=== PATIENT | female | born 1930 | race Caucasian/White ===

== ENCOUNTER 2016-07-03 15:12 | Inpatient (IN) ==
[2016-07-03 17:47] LABS: BASO% 0.2 % (0.0-0.8); EOS# 0.11 X1000 (0.0-0.7); HEMATOCRIT 24.7 % (37.0-47.0); IMM GRAN# 0.02 X1000 (0.0-0.04); IMM GRAN% 0.2 % (0.0-0.5); LYMPH% 12.2 % (20.5-51.1); MANUAL DIFF NEEDED? YES; MCH 23.7 PG (27-31); MCHC 32.4 g/dL (33-37); MCV 73.1 FL (81-99); MONO# 0.54 X1000 (0.11-0.59); MONO% 4.7 % (1.7-9.3); MPV 9.3 FL (7.4-10.4); NEUT% 81.7 % (42.2-75.2); PLT 394 X1000 (130-400); RBC 3.38 XMIL (4.2-5.4)
[2016-07-03 17:51] LABS: PROTIME 10.5 Seconds (9.2-11.7); PTT 28.7 Seconds (22.0-36.0)
[2016-07-03 18:01] LABS: LYMPHS 16 % (21-51); MONO 2 % (1-9)
[2016-07-03 18:02] LABS: HYPOCHROM OCCASIONAL
[2016-07-03 18:09] LABS: ALBUMIN 3.8 g/dL (3.5-5.0); CALCIUM 9.4 mg/dL (8.8-10.2); POTASSIUM 5.4 mmol/L (3.5-5.1); TOTAL BILIRUBIN 0.18 mg/dL (0.20-1.00); TOTAL PROTEIN 7.2 g/dL (6.3-8.3)
[2016-07-03 18:27] LABS: FERRITIN 46 ng/mL (13-150); FREE T4 1.41 ng/dL (0.93-1.70)
[2016-07-03] MEDS ORDERED: NS 500 ML ONE (18:39)
[2016-07-03] MEDS: ULTRAM PO SCH (18:43)
[2016-07-03] MEDS: CARAFATE PO SCH ×2 (18:45→21:53)
[2016-07-03 19:22] LABS: URINE MICRO REVIEW NEEDED? NO; URINE SOURCE CLEAN CATCH
[2016-07-03 19:25] LABS: BILIRUBIN URINE NEGATIVE (NEGATIVE); BLOOD URINE NEGATIVE (NEGATIVE); COLOR YELLOW; GLUCOSE URINE NEGATIVE (NEGATIVE); LEUKOCYTES URINE LARGE (NEGATIVE); NITRITE URINE NEGATIVE (NEGATIVE); PROTEIN URINE TRACE mg/dL (NEGATIVE); SP GRAVITY URINE 1.006; TURBIDITY URINE CLEAR (CLEAR); UROBILINOGEN URINE NORMAL (NORMAL)
[2016-07-03 19:26] LABS: UR EPITHELIAL CELLS <10 /HPF (<10); URINE BACTERIA NEGATIVE /HPF; URINE CULTURE NEEDED? YES; URINE RBC <10 /HPF (<10); URINE WBC TNTC /HPF (<10)
[2016-07-03] MEDS: METROGEL 0.75% TOP SCH (21:51)
[2016-07-03] MEDS: SODIUM CHLORIDE 0.9% INJ SCH (21:52)
[2016-07-03] MEDS: CATAPRES PO SCH (21:53)
[2016-07-03] MEDS: RESTASIS 0.05% OPH DROPS BOTH EYES SCH (21:53)
[2016-07-03] MEDS: PROTONIX IV SCH (21:53)
[2016-07-03] MEDS: COREG PO SCH (21:53)
[2016-07-03] MEDS: PRAVACHOL PO SCH (21:53)
[2016-07-03] MEDS: GLUCOSAMINE PO SCH (21:53)
[2016-07-03] MEDS: XALATAN 0.005% OPH SOLN BOTH EYES SCH (21:54)
[2016-07-03] MEDS: NS 1,000 ML IV SCH (21:55)
[2016-07-03] MEDS: ZOSYN 3.375 GM/NS 3.375 GM/50 ML IVPB IV SCH (22:26)
--- NOTE | 2016-07-03 22:45 | HISTORY AND PHYSICAL ---
CHIEF COMPLAINT: Abdominal pain, profound weakness. HISTORY OF PRESENT ILLNESS: This is an 85-year-old white female with past medical history significant for paroxysmal atrial fibrillation, first-degree AV block, diverticulosis, chronic lower extremity edema, hypertension, glaucoma, hyperlipidemia, hypothyroidism, impaired fasting glucose, insomnia, osteoarthritis, iron-deficiency anemia, low back pain, rosacea, and vitiligo who presents for evaluation of above-mentioned symptoms. Current history of present illness began over the course of the last 2-3 months. Patient states she developed acute onset of lower abdominal discomfort. The symptoms are most pronounced in the morning. Approximately once per month, she has experienced self-limiting low-grade fevers lasting approximately 1 day. She has experienced increasing belching and a dry mouth. She also notes frequent nausea. She has found that citrus juice exacerbates her symptoms, but eating occasionally improves her condition. She has experienced a burning sensation of her tongue and mouth. She was seen by a network systems integrator recently, but was unhappy with recommendations. Patient denies hematochezia or melena. She has lost a considerable amount of weight over the course of the last 3-4 months. On 06/26/2016, patient presented to my clinic for further evaluation. At that time, laboratory data was drawn. The patient was found to have hyponatremia, acute renal failure, anemia, and leukocytosis. Urinalysis was found to be abnormal and the patient was treated with antibiotic therapy. Since the last visit, the patient notes significant constipation with resolution yesterday. She continues to have profound weakness and decreased p.o. intake. Because of her persistent symptoms, repeat laboratory data was drawn. The patient was found to have progressive anemia and progressive acute renal failure with hyperkalemia. Urinalysis was also noted to be abnormal. Because of these conditions, patient will be admitted to the hospital for full evaluation and management. PAST MEDICAL HISTORY: 1. History of an abnormal mammogram. 2. Status post left ankle fracture in 1982 status post closed reduction with full recovery. 3. Paroxysmal atrial fibrillation. 4. First-degree AV block. 5. Diverticulosis. 6. Chronic lower extremity edema. 7. Hypertension. 8. Glaucoma. 9. 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 10. Hyperlipidemia. 11. Hypothyroidism. 12. Impaired fasting glucose. 13. Insomnia. 14. 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 15. Iron deficiency anemia. 16. Low back pain. 17. Menopause. 18. Modest carotid artery disease. 19. Generalized osteoarthritis. 20. Overweight. 21. Rosacea. 22. History of urticaria. 23. Vitiligo. CURRENT MEDICATIONS: 1. Aspirin 81 mg daily. 2. Sumaya 180 mg daily. 3. B-complex vitamin daily. 4. Carafate 1 g tablet 4 times daily. 5. Carvedilol 6.25 mg twice daily. 6. Clonidine 0.1 mg twice daily. 7. Cozaar 100 mg daily. 8. Glucosamine/chondroitin daily. 9. Metronidazole cream twice daily. 10. Meloxicam 15 mg daily. 11. Omeprazole 40 mg daily. 12. Pravastatin 40 mg at bedtime. 13. Restasis eye drops 1 drop twice daily. 14. Synthroid 88 mcg daily. 15. Trazodone 50 mg at bedtime. 16. Triamterene/hydrochlorothiazide 37.5/25 daily. 17. Ultram 50 mg, 2 tablets 3 times daily. 18. Voltaren Gel as needed. 19. Xalatan 0.005 liquid, 1 drop each eye at bedtime. 20. Zofran as needed. ALLERGIES: Patient states she is allergic to ibuprofen, Norvasc, and Zyrtec. SOCIAL HISTORY: Patient denies tobacco, alcohol or illicit drug use. She is a retired missionary. She enjoys reading and cross-stitching. She exercises intermittently. FAMILY HISTORY: Patient's father passed at age 58 secondary to complications of an acute myocardial infarction. Patient's mother passed at age 89 secondary to complications of acute myocardial infarction. REVIEW OF SYSTEMS: A 12 point review of systems was performed. Pertinent positives and negatives noted in history present illness. PHYSICAL EXAMINATION: VITAL SIGNS: Temperature 98.3 degrees, heart rate 63, respirations 20, blood pressure is 129/32. GENERAL: Elderly in no acute distress. HEENT: Normocephalic, atraumatic. Pupils equal, round, reactive to light. Extraocular muscles intact. Sclerae anicteric. Pale conjunctivae. Oral and nasopharynx clear without exudate. NECK: Supple. No lymphadenopathy. No thyromegaly. No bruits auscultated. CARDIOVASCULAR: Regular rate and rhythm. No significant murmurs, rubs, or gallops. PULMONARY: Clear to auscultation bilaterally. ABDOMEN: Diffusely tender without guarding or rebound. Positive bowel sounds. EXTREMITIES: Moves all extremities well. No significant clubbing, cyanosis, or edema. DERMATOLOGIC: Evaluation reveals no evidence of rash. LABORATORY DATA: White blood cell count 11.51, hemoglobin 8.0, hematocrit 24.7, platelet count 394,000, PT 10.5, INR is 1.00, PTT is 28.7, sodium 125, potassium 5.4, chloride 92, bicarb 15, BUN 70, creatinine 2.2, glucose 111, calcium 9.4, iron 46, TIBC 331, percent saturation 14, ferritin 46, total bilirubin 0.18, total protein 7.2, albumin 3.8, alkaline phosphatase 78, AST 12, ALT 12, amylase 46, lipase 29, vitamin B12 greater than 200, TSH 0.51, free T4 of 1.41. Urinalysis is significant for too many to count white blood cells. ASSESSMENT AND PLAN: An 85-year-old white female with past medical history as noted presents for evaluation of persistent abdominal discomfort and decreased p.o. intake. Laboratory data is significant for a significant anemia, acute renal failure, and hyponatremia. Patient will be admitted to the hospital for full evaluation and management of each of these conditions. 1. Admit to General Medicine. 2. Anemia - The patient has a low MCV suggestive of underlying iron deficiency. I am most concerned in regard to GI loss. We will Hemoccult all stools. I have discussed case with Dr. Lozano and he will consult and consider endoscopic evaluation. We will follow clinical course closely. 3. Abdominal discomfort - The patient recently had a CT scan which suggested constipation. We will continue MiraLAX therapy. Once again, patient will likely require endoscopic evaluation to rule out colonic pathology. 4. Hyponatremia - This likely is secondary to acute renal failure and decreased p.o. intake. We will hold all diuretics. We will start normal saline. We will follow this. 5. Acute renal failure - Recently, patient had a creatinine of 0.7. Creatinine today is 2.4. Once again, I suspect this is secondary to decreased p.o. intake. We will aggressively, but cautiously, hydrate. We will hold all diuretics. We will also hold potentially nephrotoxic agents. 6. Hyperkalemia - This is secondary to acute renal failure. We will hydrate as described above. 7. Profound weakness with weight loss - This is very concerning, especially in the setting of acute renal failure and profound anemia. This simply may be secondary to an underlying ulcerative disease with blood loss and acute renal failure secondary to decreased p.o. intake. I am, however, concerned the patient is at risk for an underlying GI malignancy. We will aggressively evaluate as described above. 8. Abnormal urinalysis - We will send the patient's urine for culture. We will start patient on Zosyn therapy. We will follow this. 9. Hyperlipidemia - We will continue patient on pravastatin therapy. 10. Hypothyroidism - The patient's TSH is acceptable. We will continue her current regimen. 11. Impaired fasting glucose - Will remain aware. 12. Leukocytosis - This certainly could be secondary to urinary tract infection. We will follow this. 13. Fluid, electrolytes, nutrition - We will monitor electrolytes, normal saline at 500 mL bolus followed by 50 mL an hour. Clear liquid diet. 14. Prophylaxis. Patient will be placed on SCDs. Anticoagulants are contraindicated in the setting of anemia. cc: Golden Shabazz MD
[2016-07-04] MEDS: ZOSYN 3.375 GM/NS 3.375 GM/50 ML IVPB IV SCH ×4 (04:04→20:46)
[2016-07-04 05:52] LABS: BASO% 0.2 % (0.0-0.8); EOS# 0.12 X1000 (0.0-0.7); EOS% 1.2 % (0.0-10.0); HEMATOCRIT 24.9 % (37.0-47.0); IMM GRAN# 0.02 X1000 (0.0-0.04); IMM GRAN% 0.2 % (0.0-0.5); LYMPH# 0.84 X1000 (1.2-3.4); LYMPH% 8.2 % (20.5-51.1); MANUAL DIFF NEEDED? NO; MCH 23.5 PG (27-31); MCHC 32.1 g/dL (33-37); MONO# 0.66 X1000 (0.11-0.59); MONO% 6.5 % (1.7-9.3); MPV 9.3 FL (7.4-10.4); NEUT% 83.7 % (42.2-75.2); PLT 355 X1000 (130-400); RBC 3.41 XMIL (4.2-5.4)
[2016-07-04 06:07] LABS: ALBUMIN 3.5 g/dL (3.5-5.0); CALCIUM 9.1 mg/dL (8.8-10.2); POTASSIUM 4.8 mmol/L (3.5-5.1); TOTAL BILIRUBIN 0.2 mg/dL (0.20-1.00); TOTAL PROTEIN 7.6 g/dL (6.3-8.3)
[2016-07-04] MEDS: ZOFRAN IV PRN (08:56)
[2016-07-04] MEDS ORDERED: MIRALAX PO SCH (09:00)
[2016-07-04] MEDS: PROTONIX IV SCH ×2 (09:03→20:46)
[2016-07-04] MEDS: SODIUM CHLORIDE 0.9% INJ SCH (09:03)
[2016-07-04] MEDS: CARAFATE PO SCH ×4 (09:08→20:47)
[2016-07-04] MEDS: CATAPRES PO SCH ×2 (09:09→20:48)
[2016-07-04] MEDS: COREG PO SCH ×2 (09:09→20:48)
[2016-07-04] MEDS: ALLEGRA PO SCH (09:09)
[2016-07-04] MEDS: ULTRAM PO SCH ×4 (09:09→16:36)
[2016-07-04] MEDS: RESTASIS 0.05% OPH DROPS BOTH EYES SCH ×2 (09:10→20:46)
[2016-07-04] MEDS: METROGEL 0.75% TOP SCH ×2 (09:17→20:46)
[2016-07-04] MEDS: NS 1,000 ML IV SCH ×2 (12:23→20:47)
--- NOTE | 2016-07-04 13:30 | PROGRESS NOTE ---
DATE: 07/04/2016 SUBJECTIVE: The patient was admitted yesterday with symptomatic anemia, acute renal failure, hyponatremia, hyperkalemia, and profound weakness. She has experienced intermittent abdominal discomfort over the course of the last several months. The patient was placed on aggressive, but cautious hydration. Clear liquid diet was initiated. I discussed case with Dr. Lozano and he plans to consult. In addition, patient was noted to have an abnormal urinalysis. Zosyn therapy was initiated. This morning, patient states she continues to feel poorly. She notes significant weakness. She denies fevers, chills, shortness of breath, or chest discomfort. OBJECTIVE: Vital Signs: T-max 98.3 degrees, heart rate 60-63, respirations 14-18, blood to 104- 143/31-53. General: Elderly, no acute distress. Cardiovascular: Regular rate and rhythm. No significant murmurs, rubs, or gallops. Pulmonary: Clear to auscultation bilaterally. Abdomen: Soft and diffusely tender, although improved from yesterday. No guarding or rebound. Positive bowel sounds. Extremities: Moves all extremities well. No significant clubbing, cyanosis, or edema. Dermatologic: Evaluation reveals no evidence of rash. LABORATORY DATA: White blood cell count 10.20 hemoglobin 8.0 hematocrit 24.9, platelet count is 355,000. Sodium 132, potassium 4.8, chloride 99, bicarb 16, BUN 64, creatinine 2.0, glucose 95, calcium 9.1, total bilirubin 0.20, total protein 7.6, albumin 3.5, alkaline phosphatase 70, AST 10, ALT 10. ASSESSMENT AND PLAN: 1. Symptomatic anemia-patient has a significantly low MCV suggestive of an iron deficiency. Iron level returned low, but ferritin was acceptable. This could represent acute phase. Hemoccult evaluation thus far is pending. In the setting of abdominal discomfort and anemia, I do feel a full GI evaluation is warranted. Dr. Lozano has been consulted. We will plan an EGD and colonoscopy once able. 2. Abdominal discomfort-as described in history and physical examination, CT scan suggested constipation. I am concerned in regards to an intraluminal abnormality. For now, we will continue MiraLAX. We will defer management to Dr. Lozano. 3. Hyponatremia-this likely was secondary to a combination of acute renal failure and decreased p.o. intake. All diuretics were held. Sodium level has improved, although not normalized. We will continue to follow. 4. Acute renal failure-patient's creatinine has improved to 2.0. BUN is trending downward. We will continue aggressive but cautious hydration. 5. Hyperkalemia-patient has achieved resolution with hydration. 6. Profound weakness and weight loss-this has occurred over the course of the last several months. Certainly, patient has several potential etiologies including acute renal failure and profound anemia. I am concerned in regards to the possibility of underlying GI pathology. We will evaluate as described above. We will encourage patient to eat all meals in chair. We will consider physical therapy in the future. 7. Abnormal urinalysis-patient has too many to count white blood cells, but no bacteria. We will follow patient's culture. For now, we will continue Zosyn therapy. 8. Hyperlipidemia-we will continue pravastatin therapy. 9. Hypothyroidism-patient's TSH was acceptable upon admission. We will remain aware. 10. Impaired fasting glucose-we will remain aware. 11. Leukocytosis-patient's white count has normalized. We will continue Zosyn. We will follow cultures. 12. Disposition-at this point, patient continues to require [facility] care in the hospital setting. We will plan discharge home once appropriate. cc: Golden Shabazz MD
[2016-07-04] MEDS: XALATAN 0.005% OPH SOLN BOTH EYES SCH (20:46)
[2016-07-04] MEDS: GLUCOSAMINE PO SCH (20:47)
[2016-07-04] MEDS: ICAR-C PO SCH (20:47)
[2016-07-04] MEDS: PRAVACHOL PO SCH (20:47)
[2016-07-05] MEDS: ZOSYN 3.375 GM/NS 3.375 GM/50 ML IVPB IV SCH ×4 (03:08→21:59)
[2016-07-05] MEDS: ZOFRAN IV PRN (03:12)
--- NOTE | 2016-07-05 04:48 | CONSULTATION ---
DATE OF CONSULTATION: 07/04/2016 ATTENDING PHYSICIAN: Dr. Golden Shabazz. PRIMARY CARE DOCTOR: Dr. Golden Shabazz. REASON FOR CONSULTATION: Anemia, question of GI bleed, and previous history of gastric ulcer, constipation. HISTORY OF PRESENT ILLNESS: Ms. Montero is an 85-year-old female who was admitted on 07/03/2016 as a direct admit from Dr. Golden Shabazz' office for profound weakness and abdominal pain. According to the records, the patient was noted to have dropping hematocrit and worsening constipation. She had similar symptoms a year and a half ago, about March 2015. At that time, she came in anemic and had an EGD done by Dr. Gan that which showed evidence of an ulcer in the stomach. She had biopsies done of the ulcer which came back benign. The patient was supposed to have a repeat EGD done in 3 months after discharge but the patient does not recall having another EGD done after that time period. According to the patient, she has been on baby aspirin for coronary heart disease and paroxysmal atrial fibrillation. She denies any other NSAIDs at home. She denies any overt GI bleeding symptoms like vomiting blood or passing blood in the stools or melena. In fact, she is getting constipated and she is having a hard time passing stools. She has been taking MiraLAX at home with partial relief. She does not recall her last colonoscopy. During this admission, she was also noted to be hypernatremic, in renal failure with elevation of BUN and creatinine, anemia, leukocytosis, and a UTI. She is currently being managed by Dr. Shabazz for those. PAST MEDICAL HISTORY: 1. Abnormal mammogram. 2. First-degree AV block. 3. Diverticulosis. 4. Chronic lower extremity edema. 5. Proximal atrial fibrillation. 6. Hypertension. 7. Glaucoma. 8. Presumed hepatitis A with full recovery history. 9. Hyperlipidemia. 10. Hypothyroidism. 11. Impaired fasting glucose. 12. Insomnia. 13. Internal derangement of bilateral knees, status post bilateral total knee arthroplasty. 14. Iron-deficiency anemia. 15. Low back pain. 16. Menopause. 17. Carotid artery disease. 18. Generalized osteoarthritis. 19. Rosacea. 20. Urticaria. 21. Vitiligo. PAST SURGICAL HISTORY: 1. EGD in March [address] Gan showing a gastric ulcer. 2. Left ankle fracture in 1982, status post closed reduction with full recovery. 3. Bilateral total knee arthroplasty. MEDICATIONS AT HOME: Include: 1. Aspirin 81 mg every day. 2. Sumaya 180 mg daily. 3. B complex vitamin daily. 4. Carafate 1 g 4 times daily. 5. Carvedilol 6.25 mg b.i.d. 6. Clonidine 0.1 mg b.i.d. 7. Cozaar 100 mg daily. 8. Glucosamine/chondroitin daily. 9. Metronidazole cream twice daily. 10. Meloxicam 15 mg every day. 11. Omeprazole 40 mg every day. 12. Pravastatin 40 mg bedtime. 13. Restasis 1 drop twice daily. 14. Synthroid 88 mcg daily. 15. Trazodone 50 mg at bedtime. 16. Triamterene/hydrochlorothiazide 37.5/25 once daily. 17. Ultram 50 mg 2 tablets 3 times daily. 18. Voltaren gel as needed. 19. Xalatan 0.005 liquid to each eye at bedtime. 20. Zofran as needed. ALLERGIES: Ibuprofen, Norvasc, and Zyrtec. SOCIAL HISTORY: She denies any alcohol, tobacco, or drug use. 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 FAMILY HISTORY: No history of stomach or colon cancer in the family. REVIEW OF SYSTEMS: Denies any current fevers or chills. She does complain of feeling weak and tired. She also complains of bloating and constipation but denies noticing any blood in the stools. She denies any vomiting blood. She denies any chest pain or shortness of breath. She does have chronic pain in the back and the legs and ankle and knees secondary to osteoarthritis. Denies any neurologic complaints. MEDICATIONS IN THE HOSPITAL: Include: 1. Coreg. 2. Clonidine. 3. Cyclosporine in both eyes. 4. Fexofenadine, glucosamine. 5. Iron C b.i.d. 6. Latanoprost in both eyes. 7. Metronidazole topical b.i.d. 8. IV fluids at 50 mL per hour. 9. Zofran 4 mg IV every 4 hours as needed. 10. Protonix 40 mg IV q.12 hours. 11. MiraLAX 17 g daily. 12. Pravastatin 40 mg at bedtime. 13. Carafate 1 g 4 times daily. 14. Tramadol 100 mg p.o. t.i.d. 15. Zosyn 3.375 IV q.6 hours. 16. She is currently on a clear liquid diet. PHYSICAL EXAMINATION: Vital Signs: Temperature 98.4, pulse rate of 108, respiratory rate 18, blood pressure 103/60, saturating 94% on room air. Body weight of 140 pounds, BMI 24 kg. General Appearance: Moderately built, moderately nourished, lying in bed, in no acute distress. HEENT: Pale conjunctivae. No icterus. Pupils equal, react to light. Neck: Supple. Chest: Decreased in the bases. Cardiovascular: Regular rhythm. Abdomen: Soft, mildly protuberant. Tympanic on percussion. No rebound or guarding. Bowel sounds are present but hypoactive. Extremities: No cyanosis, clubbing. Neurologic: She is alert, awake, oriented x3. LABS: Hemoglobin and hematocrit are 8 and 24.9, white count of 10.2, platelet count of 355,000, MCV of 73. INR 1, PT of 10.5, PTT of 28.7. Sodium 132, potassium 4.2, chloride 99, bicarb 16, anion gap of 17, BUN of 64, creatinine of 2, glucose of 95, calcium 9.1. Total bilirubin is 0.2, AST 10, ALT 10, alkaline phosphatase 70, total protein 7.6, albumin of 3.5. B12 of more than 2000. TSH 0.51. Amylase of 46, lipase of 29. Percent saturation iron is 14, iron of 46, ferritin 46. Urinalysis showing trace protein and positive leukocytes. The urine culture showing so far preliminary no pathogenic bacteria or growth. IMPRESSION/PLAN: 1. Iron deficiency microcytic anemia, worsening now. 2. History of peptic ulcer disease based on esophagogastroduodenoscopy done in March of [address] Gan. 3. History of atrial fibrillation and carotid artery disease, on baby aspirin every day. 4. Osteoarthritis, on Mobic 15 mg every day. 5. Reflux disease, on Prilosec, omeprazole, proton pump inhibitors, and Carafate. 6. Constipation and history of diverticulosis. 7. Renal insufficiency. 8. Electrolyte imbalance. 9. Urinary tract infection. RECOMMENDATIONS: 1. At this point in time, the patient does continue on IV PPIs twice daily and Carafate 1 g 6 hours. 2. We will keep a close eye on hemoglobin and hematocrit, and type and cross, transfuse to keep hematocrit more than 23%. 3. We will hold NSAIDs for now including aspirin and Mobic until the hematocrit stabilizes. 4. Patient will continue on intravenous fluids and clear liquid diet for now. 5. Will start on Iron C b.i.d. 6. We will continue on MiraLAX once or twice daily for constipation. 7. We will schedule for esophagogastroduodenoscopy on Wednesday with Dr. Gan. If the patient shows signs of overt GI bleeding over the weekend, then we may have to pursue EGD during the weekend. 8. Above plan discussed with the patient and all questions were answered. cc: MD Golden Back MD Khurshid Yousuf, MD
--- NOTE | 2016-07-05 10:23 | PROGRESS NOTE ---
DATE: 07/05/2016 SUBJECTIVE: This morning, patient complains of being very weak. She notes having incontinence of stool overnight. She continues to have diffuse abdominal discomfort, although unchanged from previous. She denies fevers, chills, nausea, vomiting, or shortness of breath. Her p.o. intake is marginal. OBJECTIVE: Vital Signs: T-max 98.4 degrees, heart rate 57-65, respirations 14-18, blood pressure 113-138/38-104. General: Elderly, in no acute distress. Cardiovascular: Regular rate and rhythm. No significant murmurs, rubs, or gallops. Pulmonary: Clear to auscultation bilaterally. Abdomen: Soft, diffusely tender without guarding or rebound. Positive bowel sounds. Extremities: Moves all extremities well. No significant clubbing, cyanosis, or edema. Dermatologic: Evaluation reveals no evidence of rash. Laboratory Data: Pending. ASSESSMENT AND PLAN: 1. Symptomatic anemia with his associated low MCV and probable iron deficiency-patient was placed on iron replacement yesterday. I remain concerned that the patient possibly has gastrointestinal loss. Dr. Lozano has been consulted. Interestingly, patient's Hemoccult today is negative. We will plan upper and lower endoscopy as arranged by Dr. Lozano. 2. Abdominal discomfort-recent CT scan suggested only constipation. We have achieved resolution of this. As above, patient will likely require upper and lower endoscopy. We will follow along with Dr. Lozano. 3. Hyponatremia-as of yesterday, this was improving. We will recheck a level today. We will continue intravenous fluids. 4. Acute renal failure-again, as of yesterday, this is improving. We will check a BUN and creatinine today. 5. Hyperkalemia-this had resolved with hydration as of yesterday. We will re-evaluate today. 6. Profound weakness and weight loss-this has been ongoing over the course of the last several months. We will evaluate with upper and lower endoscopy as described above. Depending on findings, we will determine further interventions. The patient likely will require physical therapy and possible rehabilitation. 7. Abnormal urinalysis-patient's urinalysis showed too many to count white blood cells. Interestingly, there was no significant bacteria present. Urinalysis culture thus far is negative. For now, we will continue Zosyn therapy. 8. Hyperlipidemia-we will continue pravastatin therapy. 9. Hypothyroidism-we will continue patient's home dose of replacement. 10. Impaired fasting glucose-we will remain aware. 11. Disposition-at this point, patient continues to require senior living care in a hospital setting. We will plan discharge home once appropriate. cc: Golden Shabazz MD
[2016-07-05 11:00] LABS: BASO% 0.1 % (0.0-0.8); EOS# 0.11 X1000 (0.0-0.7); EOS% 1.4 % (0.0-10.0); HEMATOCRIT 23.1 % (37.0-47.0); HEMOGLOBIN 7.3 g/dL (12.0-16.0); IMM GRAN# 0.02 X1000 (0.0-0.04); IMM GRAN% 0.3 % (0.0-0.5); LYMPH# 0.96 X1000 (1.2-3.4); LYMPH% 12.6 % (20.5-51.1); MANUAL DIFF NEEDED? NO; MCH 23.5 PG (27-31); MCHC 31.6 g/dL (33-37); MCV 74.3 FL (81-99); MONO# 0.41 X1000 (0.11-0.59); MONO% 5.4 % (1.7-9.3); MPV 8.6 FL (7.4-10.4); NEUT% 80.2 % (42.2-75.2); PLT 341 X1000 (130-400); RBC 3.11 XMIL (4.2-5.4)
[2016-07-05 11:30] LABS: ALBUMIN 3.2 g/dL (3.5-5.0); CALCIUM 8.7 mg/dL (8.8-10.2); POTASSIUM 4.3 mmol/L (3.5-5.1); TOTAL BILIRUBIN 0.16 mg/dL (0.20-1.00); TOTAL PROTEIN 6.6 g/dL (6.3-8.3)
[2016-07-05] MEDS: METROGEL 0.75% TOP SCH ×2 (11:37→21:57)
[2016-07-05] MEDS: SODIUM CHLORIDE 0.9% INJ SCH ×2 (11:38→21:59)
[2016-07-05] MEDS: PROTONIX IV SCH ×2 (11:38→21:59)
[2016-07-05] MEDS: ALLEGRA PO SCH (11:39)
[2016-07-05] MEDS: ICAR-C PO SCH ×2 (11:39→21:58)
[2016-07-05] MEDS: RESTASIS 0.05% OPH DROPS BOTH EYES SCH ×2 (11:39→21:59)
[2016-07-05] MEDS: CARAFATE PO SCH ×4 (11:40→21:58)
[2016-07-05] MEDS: CATAPRES PO SCH ×2 (11:48→21:58)
[2016-07-05] MEDS: COREG PO SCH ×2 (11:48→21:58)
[2016-07-05] MEDS: NS 1,000 ML IV SCH (11:49)
[2016-07-05] MEDS: ULTRAM PO SCH ×3 (11:59→16:00)
--- NOTE | 2016-07-05 17:38 | PROGRESS NOTE ---
DATE: 07/05/2016 SUBJECTIVE: The patient is resting in bed. Her , her daughter, and her son-in-law is at the bedside. Patient denies any nausea or vomiting or abdominal pain. She had 2 bowel movements today. She denies noticing any blood in the stools. She had dropped her hematocrit to 23. She is fixing to get a blood transfusion per Dr. Shabazz. OBJECTIVE: Vital signs: Temperature 98.4, pulse rate 72, respiratory rate 18, blood pressure 140/54, saturating 95% on room air. General Appearance: Thinly built, lying in bed, in no acute distress. HEENT: Pale conjunctivae. No icterus. Neck: Supple. Abdomen: Soft, nontender, nondistended. Bowel sounds are normal. No guarding, no rebound. Extremities: No cyanosis, clubbing, or edema. Neurologic: She is alert, awake, oriented. LABS: Hemoglobin and hematocrit is 7.3 and 23.1, white count of 7.6, platelet count of 341,000. MCV of 74.3. Sodium of 134, potassium 4.3, chloride 104, bicarbonate of 18, anion 12. BUN of 34, creatinine 1.5. Glucose of 147, calcium is 8.7, total bilirubin is 0.16. AST 11, ALT 10. Alkaline phosphatase 59, total protein 6.6, albumin of 3.2. Urinalysis is positive. Urine cultures so far showing no growth. Stool for occult blood was negative x1. IMPRESSION AND PLAN: 1. Iron deficiency anemia. In this regard, we will schedule patient for esophagogastroduodenoscopy tomorrow with Dr. Gan. 2. History of peptic ulcer disease discovered on March, by Dr. Gan of previous esophagogastroduodenoscopy. In this regard, she will continue PPIs for now. 3. Anemia. She will be getting blood transfusion, 1 unit today. 4. I will hold her NSAIDs, including Mobic and aspirin for now. 5. Constipation, which is now resolved. At some point, she may need colonoscopy but esophagogastroduodenoscopy is negative. 6. Renal insufficiency, which is improving. 7. Urinary tract infection, currently with negative culture. Currently on antibiotics per primary team. Above plan of care was discussed with the patient and family at bedside. The patient was scheduled for esophagogastroduodenoscopy tomorrow by Dr. Gan. All questions were answered. cc: MD Golden Back MD Khurshid Yousuf, MD Scott A. Matthews, MD MTDD
[2016-07-05] MEDS: XALATAN 0.005% OPH SOLN BOTH EYES SCH (21:57)
[2016-07-05] MEDS: GLUCOSAMINE PO SCH (21:58)
[2016-07-05] MEDS: PRAVACHOL PO SCH (21:58)
[2016-07-06] MEDS: ZOSYN 3.375 GM/NS 3.375 GM/50 ML IVPB IV SCH ×4 (04:24→20:29)
[2016-07-06 06:42] LABS: BASO% 0.2 % (0.0-0.8); EOS# 0.14 X1000 (0.0-0.7); EOS% 2.3 % (0.0-10.0); HEMATOCRIT 28.2 % (37.0-47.0); HEMOGLOBIN 9.1 g/dL (12.0-16.0); LYMPH# 1.44 X1000 (1.2-3.4); LYMPH% 23.6 % (20.5-51.1); MANUAL DIFF NEEDED? YES; MCH 23.9 PG (27-31); MCHC 32.3 g/dL (33-37); MCV 74.2 FL (81-99); MONO# 0.52 X1000 (0.11-0.59); MONO% 8.5 % (1.7-9.3); MPV 9.6 FL (7.4-10.4); NEUT% 65.4 % (42.2-75.2); PLT 325 X1000 (130-400)
[2016-07-06 06:45] LABS: ALBUMIN 3.2 g/dL (3.5-5.0); POTASSIUM 3.3 mmol/L (3.5-5.1); TOTAL BILIRUBIN 0.38 mg/dL (0.20-1.00); TOTAL PROTEIN 7.1 g/dL (6.3-8.3)
[2016-07-06 08:02] LABS: BANDS 2 % (0-1); EOS 2 % (1-10); LYMPHS 24 % (21-51); MONO 2 % (1-9)
[2016-07-06 08:03] LABS: HYPOCHROM 2+
[2016-07-06] MEDS: PROTONIX IV SCH (10:18)
[2016-07-06] MEDS: SODIUM CHLORIDE 0.9% INJ SCH (10:18)
[2016-07-06] MEDS: RESTASIS 0.05% OPH DROPS BOTH EYES SCH ×2 (10:18→20:28)
[2016-07-06] MEDS: METROGEL 0.75% TOP SCH ×2 (10:18→20:27)
[2016-07-06] MEDS ORDERED: DIPRIVAN 1% ONE (13:28)
[2016-07-06] MEDS ORDERED: NS 1,000 ML ONE (13:44)
[2016-07-06] MEDS ORDERED: XYLOCAINE-MPF 2% ONE (13:44)
[2016-07-06] MEDS ORDERED: ANESTHESIA PB SET 88 IN 5742 ONE (13:44)
[2016-07-06] MEDS: ICAR-C PO SCH ×2 (14:44→20:28)
[2016-07-06] MEDS: ALLEGRA PO SCH (14:45)
[2016-07-06] MEDS: ULTRAM PO SCH ×4 (14:55→18:11)
[2016-07-06] MEDS: COREG PO SCH ×2 (14:57→21:00)
[2016-07-06] MEDS: CATAPRES PO SCH (14:57)
--- NOTE | 2016-07-06 18:18 | OPERATIVE NOTE ---
PROCEDURE DATE: 07/06/2016 PROCEDURE PERFORMED: Esophagogastroduodenoscopy. PROVIDER: Cristobal Gan MD PREOPERATIVE DIAGNOSIS: Iron-deficiency anemia. POSTOPERATIVE DIAGNOSES: 1. Esophageal ring. 2. Small hiatal hernia, sliding. 3. Otherwise normal esophagogastroduodenoscopy. HISTORY: This is an 85-year-old white female, admitted to the hospital with profound anemia. EGD was done to identify the etiology and treat accordingly. She has a history of peptic ulcer disease, treated last year. Informed consent was obtained from the patient. The procedure, risks, benefits, and alternatives were explained in layman's terms. She understood and all pertinent questions were answered. DESCRIPTION OF PROCEDURE: The patient was brought to the endoscopy unit and was premedicated as per Anesthesia. After adequate sedation, while she was lying in the left lateral position, the gastroscope was introduced into the posterior pharynx and advanced under direct vision into the esophagus. The GE junction was noted at about 36 cm from the incisors. A ring was noted, which was widely patent. There was a small hiatal hernia noted, about 2 cm. The diaphragmatic hiatus was noted at about 38 cm from the incisors. No esophagitis or esophageal varices were noted. The scope was then passed through the esophagus into the stomach. The stomach was examined both in straight and retroflexed view, which revealed normal cardia, fundus, body, and antrum. The scope was then passed through the normal pylorus, into the duodenal bulb, and then 2nd part of the duodenum. Both appeared to be normal. I did not see any evidence of peptic ulcer disease, gastric ulcer, or duodenal ulcer. The scope was removed. The patient tolerated the procedure well. No complications were noted. The patient was then transferred to the recovery area in stable condition. IMPRESSION: 1. Esophageal ring, widely patent. 2. Hiatal hernia, small. 3. Otherwise normal esophagogastroduodenoscopy. I did not see any evidence of active bleeding or stigmata of recent bleed. RECOMMENDATIONS: I will reduce her Protonix to 20 mg every day. I will stop the IV Protonix and change it to p.o. Prilosec 20 mg every day. Continue to avoid NSAIDs, if possible and, since we did not see any evidence of active bleeding or stigmata of recent bleed on the EGD, she would benefit from colonoscopy. I will discuss with Dr. Arora's and the family members if they want to pursue. That can very well be done as an outpatient too. I have explained the findings and plan with the patient's family. They understood and all pertinent questions were answered. cc: MD Golden Carver MD
[2016-07-06] MEDS ORDERED: CALMOSEPTINE OINTMENT TOP PRN (18:36)
[2016-07-06] MEDS: XALATAN 0.005% OPH SOLN BOTH EYES SCH (20:27)
[2016-07-06] MEDS: PRAVACHOL PO SCH (20:28)
[2016-07-06] MEDS: GLUCOSAMINE PO SCH (20:28)
--- NOTE | 2016-07-06 22:05 | PROGRESS NOTE ---
DATE: 07/06/2016 SUBJECTIVE: The patient remains very weak. She was transfused 1 unit of packed red blood cells yesterday. Despite this patient notes no clinical change. She continues to have some abdominal discomfort, although largely unchanged from previous. She denies fevers, chills, nausea, vomiting, shortness of breath, or chest discomfort. Her p.o. intake is marginal. OBJECTIVE: Vital Signs: T-max 98.5 degrees, heart rate 54-64, respirations 12-16, blood pressure 140-166/45-65. General: Well-nourished, well-developed, in no acute distress. Cardiovascular: Regular rate and rhythm. No significant murmurs, rubs, or gallops. Pulmonary: Clear to auscultation bilaterally. Abdomen: Diffusely tender without guarding or rebound. Positive bowel sounds. Extremities: Moves all extremities well. No significant clubbing, cyanosis, or edema. Dermatologic: Evaluation reveals no evidence of rash. LABORATORY DATA: White blood cell count 6.09, hemoglobin 9.1, hematocrit 28.2, platelet count 325,000, sodium 137, potassium 3.3, chloride 106, bicarbonate 17, BUN 21, creatinine 1.4, glucose 102, total bilirubin 0.38, total protein 7.1, albumin 3.2, alkaline phosphatase 60, AST 11, ALT 9. ASSESSMENT AND PLAN: 1. Symptomatic anemia with associated low MCV - Patient has been placed on iron replacement. EGD revealed no definitive etiology. I have discussed case with Dr. Gan. We will plan colonoscopy as soon as possible. 2. Abdominal discomfort - As noted in previous notes, CT scan suggested only constipation. Constipation has been resolved, but abdominal discomfort persists. We will pursue a colonoscopy as soon as this can be scheduled. 3. Hyponatremia - The patient has achieved resolution with IV fluids. 4. Acute renal failure - Patient's creatinine continues to improve. We will continue hydration. 5. Hyperkalemia - Patient has achieved resolution. Interestingly, her potassium has dropped to 3.3. We will plan to recheck this in the a.m. 6. Profound weakness and weight loss - I am very concerned in this regard. Underlying GI pathology is highest on my differential. We will pursue colonoscopic evaluations. If this returns negative, we will consider alternative etiologies. 7. Urinary tract infection - Patient's urine from clinic grew E. coli. We will continue Zosyn therapy. 8. Hyperlipidemia - We will continue pravastatin therapy. 9. Hypothyroidism - We will continue patient on home dose of replacement. As of last evaluation this was controlled. 10. Impaired fasting glucose - We will remain aware. 11. Disposition - At this point, patient continues to require half-way care in a hospital setting. We will plan discharge home once appropriate. cc: Golden Shabazz MD
[2016-07-07] MEDS: ZOSYN 3.375 GM/NS 3.375 GM/50 ML IVPB IV SCH ×5 (00:50→22:02)
[2016-07-07 05:37] LABS: BASO% 0.3 % (0.0-0.8); EOS# 0.21 X1000 (0.0-0.7); EOS% 2.3 % (0.0-10.0); HEMOGLOBIN 9.1 g/dL (12.0-16.0); LYMPH# 1.61 X1000 (1.2-3.4); LYMPH% 17.9 % (20.5-51.1); MANUAL DIFF NEEDED? NO; MCH 23.5 PG (27-31); MCHC 31.4 g/dL (33-37); MCV 74.7 FL (81-99); MONO% 5.6 % (1.7-9.3); NEUT% 73.9 % (42.2-75.2); PLT 314 X1000 (130-400); RBC 3.88 XMIL (4.2-5.4)
[2016-07-07 05:53] LABS: ALBUMIN 3.1 g/dL (3.5-5.0); CALCIUM 9.1 mg/dL (8.8-10.2); POTASSIUM 3.9 mmol/L (3.5-5.1); TOTAL BILIRUBIN 0.29 mg/dL (0.20-1.00); TOTAL PROTEIN 7.1 g/dL (6.3-8.3)
[2016-07-07] MEDS: CATAPRES PO SCH ×3 (06:23→22:04)
[2016-07-07] MEDS: PRILOSEC PO SCH (06:55)
[2016-07-07] MEDS: METROGEL 0.75% TOP SCH ×2 (09:04→22:03)
[2016-07-07] MEDS: ICAR-C PO SCH ×2 (09:05→22:04)
[2016-07-07] MEDS: ULTRAM PO SCH ×4 (09:05→21:00)
[2016-07-07] MEDS: ALLEGRA PO SCH (09:05)
[2016-07-07] MEDS: RESTASIS 0.05% OPH DROPS BOTH EYES SCH ×2 (09:05→22:03)
[2016-07-07] MEDS: COREG PO SCH ×2 (09:05→22:04)
[2016-07-07] MEDS ORDERED: GOLYTELY PO ONE (14:00)
[2016-07-07] MEDS: ZOFRAN IV PRN ×2 (16:26→22:14)
--- NOTE | 2016-07-07 20:52 | PROGRESS NOTE ---
DATE: 07/07/2016 SUBJECTIVE: The patient remains very weak. Yesterday, an EGD was performed. Patient tolerated this very well. EGD demonstrated an esophageal ring, small hiatal hernia, but otherwise normal findings. No evidence of bleeding was identified. The patient is prepared to be prepped this evening and have a colonoscopy in the a.m. She denies fevers, chills, nausea, vomiting, shortness of breath, or chest discomfort. She continues to have intermittent abdominal discomfort. OBJECTIVE: Vital signs: Temperature maximum 98.3 degrees, heart rate 54-62, respirations 16-18, blood pressure 130-166/41-50. General: Elderly, no acute distress. Cardiovascular: Regular rate and rhythm. No significant murmurs, rubs, or gallops. Pulmonary: Clear to auscultation bilaterally. Abdomen: Soft, nondistended, diffuse tenderness without guarding or rebound. Positive bowel sounds. Extremities: Moves all extremities well. No significant clubbing, cyanosis, or edema. Dermatologic: Evaluation reveals no evidence of rash. LABORATORY DATA: White blood cell count 9, hemoglobin 9.1, hematocrit 29, platelet count 314,000. Sodium 138, potassium 3.9, chloride 104, bicarb 22, BUN 20, creatinine 1.3, glucose 94, total bilirubin 0.29, total protein 7.1, albumin 3.1, alkaline phosphatase 57, AST 11, ALT 9. ASSESSMENT AND PLAN: 1. Symptomatic anemia with associated low MCV-patient has been placed on iron replacement. She has received 1 unit of packed red blood cells. We will plan to pursue a colonoscopy to rule out underlying colonic pathology. 2. Abdominal discomfort-previous computed tomography scans suggested only constipation. Esophagogastroduodenoscopy is as described above. We will plan colonoscopy in the a.m. 3. Hyponatremia-patient has achieved resolution with IV fluid. 4. Acute renal failure-patient's kidney function has improved considerably with IV hydration. We will follow this. 5. Profound weakness and weight loss-I remain concerned in regards to gastrointestinal pathology. We will plan colonoscopy in the a.m. 6. Urinary tract infection-we will continue patient on Zosyn therapy. 7. Hypothyroidism-we will continue her home medical regimen. 8. Impaired fasting glucose-we will remain aware. 9. Disposition-at this point, patient continues to require fpc care in the hospital setting. We will plan discharge home once appropriate. cc: Golden Shabazz MD
[2016-07-07] MEDS: XALATAN 0.005% OPH SOLN BOTH EYES SCH (22:03)
[2016-07-07] MEDS: PRAVACHOL PO SCH (22:04)
[2016-07-07] MEDS: GLUCOSAMINE PO SCH (22:04)
[2016-07-08] MEDS: ZOSYN 3.375 GM/NS 3.375 GM/50 ML IVPB IV SCH ×3 (04:50→17:30)
[2016-07-08] MEDS: PRILOSEC PO SCH (08:31)
[2016-07-08] MEDS: RESTASIS 0.05% OPH DROPS BOTH EYES SCH (08:32)
[2016-07-08] MEDS: METROGEL 0.75% TOP SCH (08:38)
[2016-07-08] MEDS: ALLEGRA PO SCH (10:11)
[2016-07-08] MEDS: ULTRAM PO SCH (10:11)
[2016-07-08] MEDS: ICAR-C PO SCH (10:11)
[2016-07-08] MEDS ORDERED: COREG PO SCH (10:12)
[2016-07-08] MEDS: COREG PO SCH (10:12)
[2016-07-08] MEDS: CATAPRES PO SCH (10:13)
--- NOTE | 2016-07-08 10:13 | EKG Report ---
Test Performed on : 07/08/2016 08:25:30 AM Test Reason : sinus arrhythmia/ telemetry change Blood Pressure : / mmHG Vent. Rate : 050 BPM Atrial Rate : 050 BPM P-R Int : 272 ms QRS Dur : 100 ms QT Int : 446 ms P-R-T Axes : 086 028 073 degrees QTc Int : 406 ms Sinus bradycardia. with 1st degree AV block. with fusion complexes and premature atrial complexes. Otherwise normal ECG When compared with ECG of 12-SEP-2007 11:32, fusion complexes are now present premature atrial complexes. are now present DE interval has increased Confirmed by Olman Staples MD ([id number]) on 07/10/2016 7:08:18 AM
[2016-07-08] MEDS ORDERED: DIPRIVAN 1% ONE (14:32)
--- NOTE | 2016-07-08 16:54 | OPERATIVE NOTE ---
PROCEDURE DATE: 07/08/2016 PROCEDURE: Colonoscopy. PREOPERATIVE DIAGNOSIS: Anemia. POSTOPERATIVE DIAGNOSIS: Diverticulosis, otherwise normal colon. HISTORY: This is an 85-year-old white female admitted to the hospital with profound anemia and weakness. EGD done earlier did not show any pathology that would explain her anemia. Colonoscopy was done for diagnostic purposes. DESCRIPTION OF PROCEDURE: Informed consent was obtained from the patient. The procedure, risks, benefits, alternatives were explained in layman's terms. She understood. All the pertinent questions were answered. Patient was brought to the endoscopy unit and was premedicated as per anesthesia. After adequate sedation, while she was lying in left lateral position, digital rectal exam was performed which was normal. Scope was then gently introduced into the rectum and advanced under direct vision through the parts of colon, all the way up to the cecum. The cecum was identified by ileocecal valve and appendiceal orifice. Scope was withdrawn back through the colon, all the way to the rectum paying attention to details. Preparation was good. The visualized portion of the colon did not reveal any pathology except for diverticulosis which were scattered throughout the colon. No evidence of diverticulitis or diverticular bleeding noted. Retroflexed view of the rectum revealed no pathology either. The scope was then removed. Patient tolerated the procedure well. No complications noted. Patient was then transferred to the recovery area in a stable condition. IMPRESSION: Diverticulosis, otherwise normal colon. I did not see any pathology in the colon that would explain her anemia. Small bowel follow through would be an option to rule out small bowel pathology for her anemia. SBFT can be done as an outpatient. cc: MD Golden Carver MD MTDD
[2016-07-08 16:57] VITALS: BP 144/31
--- NOTE | 2016-07-09 15:04 | DISCHARGE SUMMARY ---
ADMISSION DATE: 07/03/2016 DISCHARGE DATE: 07/08/2016 ADMISSION DIAGNOSES: 1. Abdominal pain. 2. Profound weakness. DISCHARGE DIAGNOSES: 1. Symptomatic anemia. 2. Iron deficiency. 3. Abdominal discomfort, improving. 4. Hyponatremia, improved. 5. Hyperkalemia, improved. 6. Acute renal failure, improved. 7. Profound weakness and recent weight loss. 8. Urinary tract infection. 9. Hypothyroidism, present on arrival. 10. Impaired fasting glucose, present on arrival. CONSULTATION: Dr. Gan with gastroenterology was consulted for further evaluation and management of anemia, weight loss and abdominal discomfort. PROCEDURES: 1. An EGD was performed on 07/06/2016, which revealed an esophageal ring, small hiatal hernia, sliding. 2. Colonoscopy was performed on 07/08/2016 which revealed diverticulosis, otherwise normal colon. HISTORY AND PHYSICAL EXAMINATION: See admit note. PHYSICAL EXAMINATION PRIOR TO DISCHARGE: Vital Signs: Temperature 97.5 degrees, heart rate 93, respirations 16, blood pressure is 144/31. General: Well nourished, well developed, in no acute distress. Cardiovascular: Regular rate and rhythm. No significant murmurs, rubs, or gallops. Pulmonary: Clear to auscultation bilaterally. Abdomen: Soft, nontender, nondistended. Positive bowel sounds. Extremities: Moves all extremities well. No significant clubbing, cyanosis, or edema. Dermatologic: Evaluation reveals no evidence of rash. LABORATORY DATA: None. HOSPITAL COURSE: Patient was admitted as per history and physical examination. Hospital course per condition is as follows: 1. Symptomatic anemia-upon admission, patient was noted to have a considerable anemia. Patient's MCV was noted to be low. Full evaluation revealed an iron deficiency. With abdominal pain, weight loss and anemia, GI pathology was felt most likely. EGD and colonoscopy returned without significant pathology. The patient will be discharged home on Icar C. We will consider whether further evaluation with a small bowel follow-through is appropriate. We will follow her clinical course closely. 2. Abdominal discomfort-as above, EGD and colonoscopy did not real reveal significant pathology. CT scan recently suggested constipation. At present time, patient's symptoms have improved considerably. We will follow this closely as an outpatient and determine if a small-bowel follow through is appropriate. 3. Hyponatremia-I suspect this is secondary to decreased p.o. intake. With hydration using normal saline, patient's sodium normalized while hospitalized. 4. Hyperkalemia-this was secondary to acute renal failure. With hydration, this improved. 5. Acute renal failure-upon admission, patient's kidney function was noted to be significantly abnormal. The patient was placed on cautious, but aggressive hydration. With hydration, her creatinine returned to baseline. At discharge, creatinine was 1.3. 6. Profound weakness-this likely is multifactorial. Acute renal failure and anemia were certainly playing a role. With further evaluation and discussion, I am concerned that poor dentition may also be playing a role. Patient has achieved improvement in her condition with hydration, transfusions, and antibiotic therapy. We will follow this closely as an outpatient. 7. Urinary tract infection-patient was treated with Zosyn while hospitalized. The patient will complete 5 additional days of Augmentin therapy as an outpatient. 8. Hypothyroidism-patient was maintained on home dose of Synthroid while hospitalized. 9. Impaired fasting glucose-the patient's blood sugars remained reasonably controlled while hospitalized. DISCHARGE CONDITION: Discharge to home. MEDICATIONS: 1. Icar C one tablet twice daily. 2. Levothyroxine 88 mcg daily. 3. Metrogel topically twice daily. 4. Augmentin 875/125 twice daily for 5 days. 5. Xalatan eyedrops at bedtime. 6. Omeprazole 40 mg daily. 7. Pravastatin 40 mg at bedtime. 8. Restasis eyedrops twice daily. 9. Catapres 0.1 mg twice daily. 10. Coreg 6.25 mg every 12 hours. 11. Sumaya 180 mg daily as needed. 12. MiraLAX 17 g in 8 ounces of juice daily as needed. 13. Tramadol 100 mg 3 times daily as needed. 14. The patient has been instructed to discontinue aspirin, meloxicam, triamterene/hydrochlorothiazide, and losartan therapy. FOLLOWUP: The patient is to follow with me in approximately 1 week. cc: Golden Shabazz MD
== END 2016-07-08 18:27 | disposition home or self-care (01) ==
LOC: DIRADM 15:12 → 4N 16:58
PROVIDERS: ADMIT Internal Medicine; ATTEND Internal Medicine